=== PATIENT | female | born 1950 | race Caucasian/White ===

== ENCOUNTER 2021-11-25 02:02 | Emergency (ER) | payer OTHER, MEDICAID ==
[~2021-11-25] VITALS: Ht 149.9 cm; Wt 91.0 kg
[2021-11-25] MEDS ORDERED: ONDANSETRON HCL 4MG/2ML INJ IV STA (04:57)
[2021-11-25] MEDS ORDERED: PANTOPRAZOLE SODIUM 40 MG/VIAL IV STA (04:57)
[2021-11-25] MEDS ORDERED: SODIUM CHLORIDE 0.9% 1,000 ML IV ONE (05:00)
[2021-11-25 05:29] LABS: HEMATOCRIT. 29.3 % (36.0-48.0); HEMOGLOBIN. 9.8 g/dL (12.0-16.0); MEAN CORPUSCULAR VOLUME 86.9 fL (81.0-99.0); MEAN PLATELET VOLUME 8.6 fl (7.4-10.4); PLATELET 171 x1000/uL (130-400); RED BLOOD CELL COUNT 3.37 mill/uL (4.2-5.4); RED CELL DISTRIBUTION WIDTH 15.1 % (11.6-14.6)
[2021-11-25 05:33] LABS: CHLORIDE 110 mEq/L (98-107)
[2021-11-25] MEDS ORDERED: ONDA4TAB5 MT (07:07)
[2021-11-25] MEDS ORDERED: PROT20 MT (07:07)
[2021-11-25 07:50] VITALS: BP 125/69
[2021-11-25 09:21] LABS: PLATELET ESTIMATE NORMAL
== END 2021-11-25 08:11 | disposition home or self-care (01) ==
LOC: ER 02:02
DX: R10.13 Epigastric pain (principal); D64.9 Anemia, unspecified; F32.9 Major depressive disorder, single episode, unspecified; E78.00 Pure hypercholesterolemia, unspecified; I10 Essential (primary) hypertension
CPT/HCPCS: 36415; 71045; 76705; 80053; 83690; 84484; 85025; 93005; 96361; 96374; 96375; 99285; C9113; J2405; J7030